=== PATIENT | female | born 1980 | race African-American/Black ===

== ENCOUNTER 2017-06-28 16:20 | Emergency (ER) | payer MEDICAID, OTHER ==
[~2017-06-28] VITALS: Ht 157.5 cm; Wt 59.0 kg
[2017-06-28 17:29] VITALS: BP 129/88
== END 2017-06-28 21:30 | disposition home or self-care (01) ==
LOC: ER 16:20
DX: H60.91 Unspecified otitis externa, right ear (principal); F17.210 Nicotine dependence, cigarettes, uncomplicated; F12.10 Cannabis abuse, uncomplicated